=== PATIENT | female | born 1990 | race Caucasian/White ===

== ENCOUNTER 2017-05-08 14:11 | Emergency (ER) | payer BC ==
[2017-05-08] MEDS ORDERED: methylPREDNISolone Sodium Succinate 125 MG/2 ML SDV IVPUSH ONE (14:31)
[2017-05-08] MEDS ORDERED: diphenhydrAMINE 50 MG/ML SDV IVPUSH ONE (14:31)
[2017-05-08] MEDS: Sodium Chloride 0.9% 10 ML Syringe FLUSH PRN ×3 (14:40→16:40)
--- NOTE | 2017-05-08 14:43 | EDM.PDOC ---
ED HPI GENERAL MEDICAL PROBLEM - General Chief Complaint: Allergic Reaction Stated Complaint: ALLERGIC REACTION Time Seen by Provider: 05/08/17 14:41 Source of Information: Reports: Patient, RN, RN Notes Reviewed History Limitations: Reports: No Limitations - History of Present Illness INITIAL COMMENTS - FREE TEXT/NARRATIVE: Pt presents to the ER with c/o an allergic reaction. She states she was given Augmentin and Prednisone for a sinus infection on 04/28/17. She states she began with hives on Monday night 05/06. She states no hives at this point, but still feels itchy. She states during the night last night she noticed swelling of the left eye, and her lips swelled quickly. She denies any swelling of the tongue or difficulty breathing. 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 Musculoskeletal History: Reports: None Neurological History: Reports: None Psychiatric History: Reports: None Endocrine/Metabolic History: Reports: None Hematologic History: Reports: None Immunologic History: Reports: None Oncologic (Cancer) History: Reports: None Dermatologic History: Reports: None - Infectious Disease History Infectious Disease History: Reports: Chicken Pox - Past Surgical History Head Surgeries/Procedures: Reports: None Female Surgical History: Reports: Other (See Below) Other Female Surgeries/Procedures: lap for cysty on ovary Social & Family History - Tobacco Use Smoking Status *Q: Never Smoker Second Hand Smoke Exposure: No - Caffeine Use Caffeine Use: Reports: Soda, Tea - Recreational Drug Use Recreational Drug Use: No ED ROS ALLERGIC REACTION - Review of Systems Review Of Systems: ROS reveals no pertinent complaints other than HPI. ED EXAM GENERAL NO PERIP PULSE - Physical Exam Exam: See Below Exam Limited By: No Limitations General Appearance: Alert, WD/WN, No Apparent Distress Eye Exam: Bilateral Eye: Normal Inspection Ears: Normal External Exam, Hearing Grossly Normal Nose: Normal Inspection Throat/Mouth: No Airway Compromise. No: Normal Lips (swollen) Head: Atraumatic, Normocephalic Neck: Normal Inspection, Supple, Non-Tender, Full Range of Motion Respiratory/Chest: No Respiratory Distress, Lungs Clear, Normal Breath Sounds, No Accessory Muscle Use, Chest Non-Tender Cardiovascular: Normal Peripheral Pulses, Regular Rate, Rhythm, No Edema, No Gallop, No JVD, No Murmur, No Rub GI/Abdominal: Normal Bowel Sounds, Soft, Non-Tender (Female) Exam: Deferred Rectal (Female) Exam: Deferred Extremities: Normal Inspection, Normal Range of Motion Neurological: Alert, Oriented, Normal Cognition, Normal Gait, No Motor/Sensory Deficits Psychiatric: Normal Affect, Normal Mood Skin Exam: Warm, Dry, Intact, Normal Color, No Rash Lymphatic: No Adenopathy Course - Vital Signs Last Recorded V/S: Last Vital Signs Temp 97.8 F 05/08/17 14:13 Pulse 82 05/08/17 16:42 Resp 16 05/08/17 16:42 BP 137/77 05/08/17 16:42 Pulse Ox 97 05/08/17 16:42 - Orders/Labs/Meds Orders: Active Orders 24 hr Category Date Time Status Peripheral IV Care [RC] . DIRECTED Care 05/08/17 14:32 Active Peripheral IV Insertion Adult [OM.PC] Stat Oth 05/08/17 14:31 Ordered Meds: Medications Discontinued Medications Generic Name Dose Route Start Last Admin Trade Name Freq PRN Reason Stop Dose Admin Diphenhydramine HCl 50 mg 05/08/17 14:31 05/08/17 14:40 Benadryl IVPUSH 05/08/17 14:32 50 mg ONETIME ONE Administration Famotidine 20 mg 05/08/17 16:16 05/08/17 16:40 Pepcid IVPUSH 05/08/17 16:17 20 mg ONETIME ONE Administration Methylprednisolone Sodium Succinate 125 mg 05/08/17 14:31 05/08/17 14:39 Solu-Medrol IVPUSH 05/08/17 14:32 125 mg ONETIME ONE Administration Sodium Chloride 10 ml 05/08/17 14:31 05/08/17 16:40 Saline Flush FLUSH 10 ml ASDIRECTED PRN Administration Keep Vein Open Departure - Departure Time of Disposition: 16:45 Disposition: Home, Self-Care 01 Clinical Impression: Drug allergy Angioedema Qualifiers: Encounter type: initial encounter Qualified Code(s): T78.3XXA - Angioneurotic edema, initial encounter - Discharge Information Instructions: Angioedema, [id number], Drug Allergy, [id number], Hives, Easy -to-Read Referrals: PCP,None [Primary Care Provider] - Forms: ED Department Discharge Additional Instructions: Pepcid 20mg orally twice daily for 7 days. Loratidine 10mg orally once daily for 7 days. Benadryl 50mg orally every 6 hours as needed for itching/swelling. Finish your prednisone, beginning tomorrow. Stop Augmentin. Follow up with your primary care facility this week. - My Orders Last 24 Hours: My Active Orders 05/08/17 14:31 Peripheral IV Insertion Adult [OM.PC] Stat 05/08/17 14:32 Peripheral IV Care [RC] . DIRECTED - Assessment/Plan Last 24 Hours: My Active Orders 05/08/17 14:31 Peripheral IV Insertion Adult [OM.PC] Stat 05/08/17 14:32 Peripheral IV Care [RC] . DIRECTED
[2017-05-08] MEDS ORDERED: Famotidine 20 MG/2 ML SDV IVPUSH ONE (16:16)
== END 2017-05-08 16:49 | disposition home or self-care (01) ==
LOC: DL.ED 14:11
DX: L50.0 Allergic urticaria (principal); T38.0X5A Adverse effect of glucocorticoids and synthetic analogues, initial encounter
CPT/HCPCS: 96374; 96375; 99283; J1200; J2930; J7050; S0028